=== PATIENT | female | born 1965 | race Caucasian/White ===

== ENCOUNTER 2017-03-15 16:09 | Emergency (ER) | payer BC, MEDICARE ==
[2017-03-15] MEDS ORDERED: HYDROcodone/ACETAMIN 5-325 MG* 1 TAB PO ONE (18:51)
[2017-03-15] MEDS ORDERED: Ondansetron ODT TAB* 4 MG PO ONE (18:52)
--- NOTE | 2017-03-15 19:00 | ED ---
Progress - Progress Note Progress Note: 51 yo F with LUQ abd pain, hx diverticulitis, states it feels like her diverticulits. No fever, no V. States she is very sensitive to pain meds. Agrees to try hydrocodone with a sip, and zofran 4mg ODT. Labs initiated and CT with oral and IV contrast ordered. Pt is marsh, , monogamous, states she is not . Doesn't get regular periods anymore. Is a smoker. No urinary sxs. No cough, no SOB. s/p helga Exam in hallway: pt with her ; alert, mod pain distress. Abd soft, +BS, tender LUQ. min tenderness LLQ, no guarding, no rebound, no masses. Pt ambulatory to bathroom after this greeting. Course/Dx - Diagnoses Provider Diagnoses: Abdominal pain
[2017-03-15 19:25] LABS: Hematocrit 43 % (35-47); Hemoglobin 15.1 g/dl (12.0-16.0); Mean Corpuscular HGB Conc 35 g/dl (31-36); Mean Corpuscular Hemoglobin 31 pg (27-31); Mean Corpuscular Volume 88 fL (80-97); Mean Platelet Volume 9 um3 (7.4-10.4); Red Blood Count 4.83 10^6/ul (4.0-5.4); Red Cell Distribution Width 14 % (10.5-15); White Blood Count 9.4 10^3/ul (3.5-10.8)
[2017-03-15 19:35] LABS: BUN/Creatinine Ratio 9.2 (8-20); EGFR Non-African American 80.9 (>60); Potassium 3.7 mmol/L (3.5-5.0)
[2017-03-15 19:36] LABS: Albumin 4.1 g/dL (3.2-5.2); Calcium 9.1 mg/dL (8.6-10.3); Globulin 2.6 g/dL (2-4); Total Bilirubin 0.3 mg/dL (0.2-1.0); Total Protein 6.7 g/dL (6.4-8.9)
[2017-03-15] MEDS ORDERED: Iohexol 300* (CONTRAST) 10 ML SDV IV ONE (19:54)
--- NOTE | 2017-03-15 20:34 | RAD ---
Indication: Left upper quadrant pain. 2 views of the chest including dual energy PA views demonstrate no mediastinal shift. Heart is of normal size and configuration. Lungs are clear. IMPRESSION: No active cardiopulmonary disease is noted.
[2017-03-15 21:34] LABS: Urine Bacteria 1+ (Absent); Urine Bilirubin Negative (Negative); Urine Glucose Negative (Negative); Urine Nitrite Negative (Negative)
--- NOTE | 2017-03-15 21:34 | RAD ---
Indication: Abdominal pain. Left upper quadrant pain, left lower quadrant pain Contrast: Administered 100.0 ml of OMNIPAQUE 300 mg/ml CT of the abdomen and pelvis was performed after oral and IV contrast demonstration. Coronal and sagittal reconstructed images were obtained. The lung bases demonstrate no pleural fluid, nodules or masses. Heart is of normal size without evidence of pericardial effusion. The liver is normal in size. The dome of the right lobe of liver there is a low density lesion measuring approximately 9 mm. Additional low density lesion inferior tip of the right lobe measures 12 mm. Nonspecific low density is noted medial segment of left lobe. These were all present on previous exam of October 13, 2013 and are likely benign findings. Patient is status post cholecystectomy. No mass or pancreatic ductal dilatation is noted. No adrenal lesions are noted. The kidneys demonstrates symmetric nephrograms without hydronephrosis. There is no evidence of abnormally dilated loops of bowel noted. The colon is filled with stool. Diverticulosis without definite evidence of diverticulitis is noted. No pelvic adenopathy is noted. No retroperitoneal adenopathy is noted. Cystic structure is noted in the enlarged right ovary measuring up to 4.9 x 3.7 x 3.2 cm. This was not present previously. Follow-up exam is suggested. No hernias are noted. Urinary bladder is unremarkable. The remainder of the pelvis is unremarkable with no pelvic adenopathy. IMPRESSION: Right ovarian cyst measuring up to 4.9 cm. No abnormal masses or fluid collections are identified. Low density lesions in the liver are stable and likely represent benign finding such as cysts.
[2017-03-15 22:21] VITALS: BP 103/64
--- NOTE | 2017-03-17 12:35 | ED ---
Luigi Miguel Benjamin, scribed for Konrad Yates MD on 03/15/17 at 2050 . Abdominal Pain/Female - HPI Summary HPI Summary: 51yo female presents to ED with left sided abdominal pain for 2 days now. Pt has hx of diverticulitis and states that her current pain feels like diverticulitis. Pain is aggravated with food and passing bowel relieves her pain. Denies fever, V/D, any urinary symptoms or SOB. Surgical hx of cholecystectomy. - History of Current Complaint Chief Complaint: EDAbdPain Stated Complaint: STOMACH PAIN LT SIDE/GI HISTORY Time Seen by Provider: 03/15/17 18:47 Hx Obtained From: Patient Hx Last Menstrual Period: spotting last a few eeks ago ?: No Onset/Duration: Still Present Timing: Constant Severity Initially: Moderate Severity Currently: Moderate Pain Intensity: 7 Pain Scale Used: 0-10 Numeric Location: Discrete At: LUQ, Discrete At: LLQ Radiates: No Aggravating Factor(s): Food Alleviating Factor(s): Bowel Movement Associated Signs and Symptoms: Negative: Fever, Cough, Constipation, Urinary Symptoms, Nausea, Vomiting, Diarrhea Allergies/Adverse Reactions: Allergies Allergy/AdvReac Type Severity Reaction Status Date / Time Morphine Allergy Unknown Hives Verified 03/15/17 16:16 Adhesive Tape Allergy SKIN Verified 03/15/17 16:16 BREAKS DOWN bleach Allergy Hives Uncoded 03/15/17 16:16 PMH/Surg Hx/FS Hx/Imm Hx Endocrine/Hematology History: Denies: Hx Diabetes, Hx Thyroid Disease Cardiovascular History: Denies: Hx Hypercholesterolemia, Hx Hypertension, Hx Pacemaker/ICD, Hx Peripheral Vascular Disease Respiratory History: Reports: Hx Asthma, Other Respiratory Problems/Disorders - undiagnosed sleep apnea Denies: Hx Chronic Obstructive Pulmonary Disease (COPD) GI History: Reports: Other GI Disorders - Hx GERD, divirticulitis Denies: Hx Ulcer History: Denies: Hx Renal Disease Musculoskeletal History: Reports: Other Musculoskeletal History - Multiple back surgeries Denies: Hx Arthritis, Hx Osteoporosis Sensory History: Reports: Hx Contacts or Glasses, Hx Eye Injury - blurry vision to right eye (childhood injury) Denies: Hx Cataracts, Hx Glaucoma, Hx Hearing Aid Opthamlomology History: Reports: Hx Contacts or Glasses, Hx Eye Injury - blurry vision to right eye (childhood injury) Denies: Hx Cataracts, Hx Glaucoma Neurological History: Reports: Hx Migraine Denies: Hx Headaches, Hx Seizures, Hx Transient Ischemic Attacks (TIA) Psychiatric History: Denies: Hx Anxiety, Hx Depression, Hx Panic Disorder - Cancer History Hx Chemotherapy: No Hx Radiation Therapy: No - Surgical History Surgery Procedure, Year, and Place: L4-L5 FUSION WITH RAY CAGE 1996 ;. L4-L5(? ) BACK SURGERY WITH RODS AND SCREWS 2002;. RT HAND SURGERY 2006;. PARTIAL HYSTERECTOMY ;. CHolecystectomy, 2013 ;. Right Knee Arthroscopy - Meniscus, APR 2014 ;. surgery for "hole" in intestines due to diverticulitis Hx Anesthesia Reactions: Yes - severe nausea/vomiting Infectious Disease History: No Infectious Disease History: Denies: Hx Clostridium Difficile, Hx Hepatitis, Hx Human Immunodeficiency Virus (HIV), Hx of Known/Suspected MRSA, Hx Shingles, Hx Tuberculosis, Hx Known/ Suspected VRE, Hx Known/Suspected VRSA, History Other Infectious Disease, Traveled Outside the [place] in Last 30 Days - Family History Known Family History: Negative: Cardiac Disease, Blood Disorder - Social History Lives: With Family Alcohol Use: None Hx Substance Use: No Substance Use Type: Reports: None Hx Tobacco Use: Yes - 1 Pack a day Smoking Status (MU): Heavy Every Day Tobacco Smoker Type: Cigarettes Amount Used/How Often: 1/2 - 1 PPD Length of Time of Smoking/Using Tobacco: ~ "enough years" Have You Smoked in the Last Year: Yes Review of Systems Negative: Fever, Chills Eyes: Negative ENT: Negative Cardiovascular: Negative Negative: Shortness Of Breath Positive: Abdominal Pain - left sided abdominal pain. Negative: Vomiting, Diarrhea, Nausea Genitourinary: Negative Positive: no symptoms reported Musculoskeletal: Negative Skin: Negative Neurological: Negative Psychological: Normal All Other Systems Reviewed And Are Negative: Yes Physical Exam Triage Information Reviewed: Yes Vital Signs On Initial Exam: Initial Vitals Temp Pulse Resp BP Pulse Ox 97.6 F 80 16 118/70 100 03/15/17 16:29 03/15/17 16:29 03/15/17 16:29 03/15/17 16:29 03/15/17 16:29 Vital Signs Reviewed: Yes Appearance: Positive: Well-Appearing, Well-Nourished, Pain Distress - mild Skin: Positive: Warm, Skin Color Reflects Adequate Perfusion, Dry Head/Face: Positive: Normal Head/Face Inspection Eyes: Positive: Normal ENT: Positive: Normal ENT inspection, Hearing grossly normal Neck: Positive: Supple, Nontender Respiratory/Lung Sounds: Positive: Clear to Auscultation, Breath Sounds Present Cardiovascular: Positive: RRR, Pulses are Symmetrical in both Upper and Lower Extremities Abdomen Description: Positive: Soft. Negative: Nontender - LUQ Bowel Sounds: Positive: Present Musculoskeletal: Positive: Strength/ROM Intact Neurological: Positive: Sensory/Motor Intact, Alert, Oriented to Person Place, Time Psychiatric: Positive: Affect/Mood Appropriate - [place] Coma Scale Coma Scale Total: 15 Diagnostics - Vital Signs Vital Signs Temp Pulse Resp BP Pulse Ox 03/15/17 16:29 97.6 F 80 16 118/70 100 - Laboratory Lab Results: Lab Results 03/15/17 03/15/17 03/15/17 Range/Units 19:10 19:10 19:10 WBC 9.4 (3.5-10.8) 10^3/ul RBC 4.83 (4.0-5.4) 10^6/ul Hgb 15.1 (12.0-16.0) g/dl Hct 43 (35-47) % MCV 88 (80-97) fL MCH 31 (27-31) pg MCHC 35 (31-36) g/dl RDW 14 (10.5-15) % Plt Count 218 (150-450) 10^3/ul MPV 9 (7.4-10.4) um3 Neut % (Auto) 59.4 (38-83) % Lymph % (Auto) 32.3 (25-47) % Starr % (Auto) 6.0 (1-9) % Eos % (Auto) 1.6 (0-6) % Baso % (Auto) 0.7 (0-2) % Absolute Neuts (auto) 5.6 (1.5-7.7) 10^3/ul Absolute Lymphs (auto) 3.0 (1.0-4.8) 10^3/ul Absolute Monos (auto) 0.6 (0-0.8) 10^3/ul Absolute Eos (auto) 0.1 (0-0.6) 10^3/ul Absolute Basos (auto) 0.1 (0-0.2) 10^3/ul Absolute Nucleated RBC 0 10^3/ul Nucleated RBC % 0 Sodium 137 (133-145) mmol/L Potassium 3.7 (3.5-5.0) mmol/L Chloride 105 (101-111) mmol/L Carbon Dioxide 28 (22-32) mmol/L Anion Gap 4 (2-11) mmol/L BUN 7 (6-24) mg/dL Creatinine 0.76 (0.51-0.95) mg/dL Est GFR ( Amer) 104.0 (>60) Est GFR (Non-Af Amer) 80.9 (>60) BUN/Creatinine Ratio 9.2 (8-20) Glucose 77 (70-100) mg/dL Lactic Acid 0.7 (0.5-2.0) mmol/L Calcium 9.1 (8.6-10.3) mg/dL Magnesium 2.0 (1.9-2.7) mg/dL Total Bilirubin 0.30 (0.2-1.0) mg/dL AST 15 (13-39) U/L ALT 19 (7-52) U/L Alkaline Phosphatase 64 (34-104) U/L C-Reactive Protein 2.00 (< 5.00) mg/L Total Protein 6.7 (6.4-8.9) g/dL Albumin 4.1 (3.2-5.2) g/dL Globulin 2.6 (2-4) g/dL Albumin/Globulin Ratio 1.6 (1-3) Amylase 46 (29-103) U/L Lipase 10 L (11.0-82.0) U/L Result Diagrams: 03/15/17 19:10 03/15/17 19:10 Lab Statement: Any lab studies that have been ordered have been reviewed, and results considered in the medical decision making process. - Radiology CXR Xray Interpretation: No Acute Changes Radiology Interpretation Completed By: Radiologist - ED physician has reviewed this radiology report and agrees. - CT CT A/P W CT Interpretation: Positive (See Comments) - IMPRESSION: Right ovarian cyst measuring up to 4.9 cm. No abnormal masses or fluid collections are identified. Low density lesions in the liver are stable and likely represent benign finding such as cysts. CT Interpretation Completed By: Radiologist - ED physician has reviewed this radiology report and agrees. Re-Evaluation - Re-Evaluation First Eval Re-Evaluation Time: 21:43 Comment: Reviewed lab and imaging result with the pt. Abdominal Pain Fem Course/Dx - Course Course Of Treatment: Ms. Lincoln presented with a concern that she was developing diverticulitis again. She had pain and no real tenderness in the LLQ. Labs and CT were OK. Her U/A is equivocal and sent for C&S. - Diagnoses Provider Diagnoses: Abdominal pain Discharge - Discharge Plan Condition: Stable Disposition: HOME Patient Education Materials: Abdominal Pain (ED) Referrals: Valentina Ace NP [Primary Care Provider] - 2 Days The documentation as recorded by the Luigi hamm Benjamin accurately reflects the service I personally performed and the decisions made by me, Konrad Yates MD.
--- NOTE | 2017-03-17 15:03 | PN ---
Progress Note - Progress Note Date of Service: 03/17/17 Note: Patient urine grew E coli 10-25,000. will not treat as not significant amount cultured.
== END 2017-03-15 22:00 | disposition home or self-care (01) ==
LOC: ED 16:09
DX: R10.32 Left lower quadrant pain (principal); R10.12 Left upper quadrant pain; K21.9 Gastro-esophageal reflux disease without esophagitis; K57.92 Diverticulitis of intestine, part unspecified, without perforation or abscess without bleeding; G43.909 Migraine, unspecified, not intractable, without status migrainosus; Z90.711 Acquired absence of uterus with remaining cervical stump; Z91.048 Other nonmedicinal substance allergy status; Z88.5 Allergy status to narcotic agent; Z90.49 Acquired absence of other specified parts of digestive tract; F17.210 Nicotine dependence, cigarettes, uncomplicated
CPT/HCPCS: 36415; 71020; 74177; 80053; 81003; 81015; 82150; 83605; 83690; 83735; 85025; 86140; 87077; 87086; 87186; 99282; A9270-GY; Q9967

== ENCOUNTER 2018-01-15 19:17 | Emergency (ER) | payer MEDICARE ==
[2018-01-15 19:48] VITALS: BP 108/61
[2018-01-15] MEDS ORDERED: Amoxicillin/Clavulanate TAB* 875 MG PO ONE (20:16)
--- NOTE | 2018-01-15 20:16 | UC ---
Throat Pain/Nasal Manolo HPI - HPI Summary HPI Summary: headaches for about 1 week, now sinus pressure, feeling a bit dizzy today when she moves fast - History of Current Complaint Chief Complaint: UCGeneralIllness Stated Complaint: SINUS PAIN,SORE THROAT Time Seen by Provider: 01/15/18 19:42 Hx Obtained From: Patient Hx Last Menstrual Period: no uterus Onset/Duration: Gradual Onset Severity: Moderate Pain Intensity: 5 Cough: Nonproductive Associated Signs & Symptoms: Positive: Negative - Allergies/Home Medications Allergies/Adverse Reactions: Allergies Allergy/AdvReac Type Severity Reaction Status Date / Time Adhesive Tape Allergy SKIN Verified 11/19/17 14:27 BREAKS DOWN morphine Allergy Hives Verified 11/19/17 14:27 bleach Allergy Hives Uncoded 11/19/17 14:27 Home Medications: Home Medications diPHENhydraMINE PO* [Benadryl PO 25 MG TAB*] 25 mg PO Q6H PRN 01/15/18 [History Confirmed 01/15/18] PMH/Surg Hx/FS Hx/Imm Hx Previously Healthy: Yes - Surgical History Surgical History: Yes Surgery Procedure, Year, and Place: L4-L5 FUSION WITH RAY CAGE 1996 ;. L4-L5(? ) BACK SURGERY WITH RODS AND SCREWS 2002;. RT HAND SURGERY 2006;. PARTIAL HYSTERECTOMY ;. CHolecystectomy, 2013 ;. Right Knee Arthroscopy - Meniscus, APR 2014 - Family History Known Family History: Positive: None Negative: Cardiac Disease, Blood Disorder - Social History Occupation: Disabled Lives: With Family Alcohol Use: Occasionally Substance Use Type: None Smoking Status (MU): Heavy Every Day Tobacco Smoker Type: Cigarettes Amount Used/How Often: 1/2 - 1 PPD Length of Time of Smoking/Using Tobacco: ~ "enough years" Have You Smoked in the Last Year: Yes Household Exposure Type: Cigarettes Cessation Counseling: Counseled 3+Min - 10 Min - Immunization History Most Recent Influenza Vaccination: 2011 Most Recent Tetanus Shot: Unknown (but done in the last 10 years) probably 4 years ago Most Recent Pneumonia Vaccination: Has not had Review of Systems Constitutional: Fatigue Skin: Negative Eyes: Negative ENT: Sinus Pain/Tenderness Respiratory: Cough - if lies supine Cardiovascular: Negative Neurological: Headache Psychological: Negative All Other Systems Reviewed And Are Negative: Yes Physical Exam Triage Information Reviewed: Yes Appearance: Well-Appearing, No Pain Distress, Well-Nourished Vital Signs: Initial Vital Signs Temp 97.3 F 01/15/18 19:43 Pulse 75 01/15/18 19:43 Resp 16 01/15/18 19:43 BP 108/61 01/15/18 19:43 Pulse Ox 99 01/15/18 19:43 Vital Signs Reviewed: Yes Eyes: Positive: Conjunctiva Clear ENT: Positive: Sinus tenderness, Other - post nasal drip Neck exam: Normal Neck: Positive: No Lymphadenopathy Respiratory Exam: Normal Respiratory: Positive: Lungs clear Cardiovascular Exam: Normal Neurological Exam: Normal Neurological: Positive: Alert Psychological Exam: Normal Skin Exam: Normal Throat Pain/Nasal Course/Dx - Differential Dx/Diagnosis Differential Diagnosis/HQI/PQRI: Pharyngitis, Sinusitis, URI Provider Diagnoses: sinusitis Discharge - Sign-Out/Discharge Documenting (check all that apply): Patient Departure - Discharge Plan Condition: Stable Disposition: HOME Prescriptions: Amoxicillin/Clavulanate TAB* [Augmentin TAB 875*] 875 mg PO BID #19 tab Fluconazole 150 MG (NF) [Diflucan 150 mg (NF)] 150 mg PO ONCE #2 tab Patient Education Materials: Sinusitis (ED) Referrals: Valentina Ace NP [Primary Care Provider] - 3 Days (if no better) Additional Instructions: drink plenty of fluids start antibiotic and take as prescribed - Billing Disposition and Condition Condition: STABLE Disposition: Home
== END 2018-01-15 20:20 | disposition home or self-care (01) ==
LOC: UCEAST 19:17
DX: J32.9 Chronic sinusitis, unspecified (principal); F17.210 Nicotine dependence, cigarettes, uncomplicated
CPT/HCPCS: 99212; A9270-GY; G0463

== ENCOUNTER → 2018-11-15 16:34 | Emergency (ER) | payer MEDICARE ==
--- OUTSIDE RECORDS SUMMARY | 2018-11-15 17:24 | XMS REPORT | Continuity of Care Document ---
:1965 External Reference #:[id number] Author Name Dorys Currie Care Team Providers Name Role Phone Zandra Simmons MD Primary Care Physician Unavailable Payers Date Identification Numbers Payment Provider Subscriber Effective: 2016 Policy Number: [id number] Medicare Blue Ppo Denise [employer] Group Number: [id number] [address] [address] PayID: [id number] [place] [id number] Expires: 2016 Policy Number: [id number] Medicare Denise Law PayID: [id number] [address] [place] [address] Problems Active Problems Provider Date Asthma Valentina Ace, N.P. Onset: 11/14/2013 Migraine with aura Valentina Ace, N.P. Onset: 11/14/2013 Disturbance in sleep behavior Meeta Vail MD Onset: 12/05/2015 Allergic rhinitis Meeta Vail MD Onset: 12/05/2015 Uncomplicated moderate persistent asthma Meeta Vail MD Onset: 12/05/2015 Localized, primary osteoarthritis Beverley Bishop M.D. 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 ETOH Use Denies alcohol use Tobacco Use Start: Unknown Patient is a current smoker, smokes every day Recreational Drug Use Denies Drug Use Smoking Status Reviewed: 10/17/18 Patient is a current smoker, smokes every day Exercise Type/Frequency Does not exercise Allergies, Adverse Reactions, Alerts Active Allergies Reaction Severity Comments Date Morphine Nausea and Vomiting Severe 11/14/2013 Bleach 05/17/2014 Adhesive 09/19/2018 Medications Active Medications SIG Qnty Indications Ordering Provider Date Meloxicam 1 by mouth 14tabs M25.562 Beverley Bishop M.D. 09/19/2018 15mg Tablets every day Symbicort 2 puff twice a 20.4gm J45.40 Meeta Vail MD 12/05/2015 80-4.5mcg/Act day Aerosol Ibuprofen Unknown History Medications Motrin Q6H 40tabs Unknown 11/19/2017 - Repack 09/18/2018 600mg Tablets Diflucan Once 4tabs Unknown 11/19/2017 - 150mg 09/18/2018 Tablets Nystatin 5cc swish and spit 180ml K12.32 Meeta Vail 10/12/2016 - 2 times a day 01/17/2017 [id number] Suspension Levaquin 1 by mouth every 7tabs Meeta Vail, 06/22/2016 - 500mg day 10/11/2016 Tablets Zithromax Z-Kyle 2 tabs day#1, 1 5tabs J45.998 Meeta Vail 06/14/2016 - tab daily for 4 10/11/2016 250mg Tablets days Prednisone Take as directed, 21units Meeta Vail, 06/14/2016 - 5mg (21) 6 tabs day#1, 5 10/11/2016 TBPK tabs day#2, 4 tabs day#3,3 tabs day#4,2 tabs day#5,1 tab day#6 Fluconazole 1 tablet daily for 14tabs Meeta Vail, 06/14/2016 - 100mg 3 days 10/11/2016 Tablets Zolpidem Tartrate 1 tablet at night 30tabs Meeta Vail 12/06/2015 - as needed for 10/11/2016 5mg Tablets sleep Eszopiclone 1 tab at night as 7tabs G47.9 Meeta Genna, 12/05/2015 - 2mg needed for sleep 10/11/2016 Tablets Zolpidem Tartrate 1 tablet by mouth 30tabs Meeta Vail, 12/05/2015 - ER as needed for MD 01/20/2016 6.25mg Tablets sleep ER Ibuprofen take one tablet by 90tabs M25.561 Alia 11/15/2015 - 800mg mouth three times CRISS Mayberry 09/18/2018 Tablets a day as needed Cephalexin 1 by mouth three 21caps L02.32 Valentina Db, 11/07/2015 - 500mg times a day for 7 N.P. 11/14/2015 Capsules days Mupirocin apply to affected 44gm L02.32 Valentina Db, 11/07/2015 - 2% areas three times N.P. 01/17/2017 Ointment a day until clear Voltaren apply 4 gms to 500gm M25.561 Valentina Db, 11/07/2015 - 1% Gel affected area four N.P. 10/11/2016 times daily not to exceed 16 gms daily Azithromycin two tabs day one, 6tabs J20.9 Valentina Db, 09/20/2015 - 250mg one daily till N.P. 09/30/2015 Tablets gone Prednisone 4 tablets by mouth 43tabs J20.9 Valentina Db, 09/20/2015 - 10mg for 4 days 3 N.P. 10/06/2015 Tablets tablets by mouth for 4 days 2 tablets by mouth for 4 days 1 tablet by mouth for 4 days Fluconazole one po 3 days for 5tabs J20.9 Valentina Db, 09/20/2015 - 150mg 5 doses N.P. 11/07/2015 Tablets Advair Diskus 1 puff by mouth 60units Valentina Ace, 04/07/2015 - twice a day N.P. 02/05/2016 250-50mcg/Dose Aerosol Fluconazole 2 tablets po day 1 30tabs 112.0 Valentina Ace, 05/28/2014 - 100mg then 1 tablet po N.P. 06/11/2014 Tablets until symptoms clear Asmanex Twisthaler inhale 2 puffs by 1units 493.90 Valentina Montalvomaru, 2013 - 120 Metered Doses mouth two times N.P. 09/20/2015 daily 220mcg/Inh Aerosol Ventolin HFA 1 to 2 inhalations 1inhaler 493.90 Valentina Ace, 11/14/2013 - every 4 hours as N.P. 01/17/2017 108(90Base) mcg/Act needed Aerosol Imitrex one tablet as 12tabs 346.90 Valentina Montalvomaru, 11/14/2013 - 50mg needed for N.P. 01/17/2017 Tablets headache Fluconazole 2 po day one then 16tabs 112.0 Valentina Montalvomaru, 11/14/2013 - 100mg 1 po daily for 14 N.P. 05/15/2014 Tablets days Advair Diskus 1 puff by mouth 14units Valentina Ace, - twice a day N.P. 05/16/2014 250-50mcg/Dose Aerosol Omeprazole 1 by mouth every 30caps Unknown - 20mg day 09/18/[address] Fluticasone 2 sprays each 16gm Valentina Ace, - Propionate nostril daily as N.P. 09/20/2015 needed 50mcg/Act Suspension Proair HFA 2 puffs by mouth 1units Unknown - every 4 hours as 11/14/2013 108(90Base) mcg/Act needed Aerosol Flagyl 1 by mouth twice a 28tabs Unknown - 500mg day 05/21/2014 Tablets Penicillin V four times a day 40tabs Unknown - Potassium for 10 days 09/20/2015 500mg Tablets Medications Administered in Office Medication SIG Qnty Indications Ordering Provider Date Synvisc Or Synvisc-One Beverley Bishop M.D. 10/10/2018 Injection 1 MG Injection Depomedrol 40MG Beverley Bishop M.D. 09/19/2018 Injection Synvisc Or Synvisc-One Beverley Bishop M.D. 02/17/2017 Injection 1 MG Injection Synvisc Or Synvisc-One Beverley Bishop M.D. 02/10/2017 Injection 1 MG Injection Synvisc Or Synvisc-One Beverley Bishop M.D. 02/03/2017 Injection 1 MG Injection Synvisc Or Synvisc-One Beverley Bishop M.D. 12/23/2015 Injection 1 MG Injection Synvisc Or Synvisc-One Beverley Bishop M.D. 12/13/2015 Injection 1 MG Injection Synvisc Or Synvisc-One Beverley Bishop M.D. 12/06/2015 Injection 1 MG Injection Inj, Regadenoson, 0.1 MG Bryant Cabezas M.D., 05/22/2014 Injection FACC, FASNC Inj, Regadenoson, 0.1 MG Viki Crane M.D. 05/22/2014 Injection Technetium TC 99M Bryant Cabezas M.D., 05/22/2014 Tetrofosmin, Per Unit Dose FACC, FASNC Up To 40 Millicuries Injection Technetium TC 99M Viki Crane M.D. 05/22/2014 Tetrofosmin, Per Unit Dose Up To 40 Millicuries Injection Vital Signs Date Vital Result Comment 10/17/2018 3:20pm Height 65 inches 5'5" Weight 190.00 lb Heart Rate 95 /min Body Temperature 96.8 F O2 % BldC Oximetry 97 % BMI (Body Mass Index) 31.6 kg/m2 10/10/2018 1:37pm Height 65 inches 5'5" Weight 192.00 lb BP Systolic 116 mmHg BP Diastolic 74 mmHg Body Temperature 97.8 F BMI (Body Mass Index) 31.9 kg/m2 09/30/2018 11:31am Height 65 inches 5'5" Weight 190.00 lb patient stated Heart Rate 84 /min BP Systolic 108 mmHg BP Diastolic 82 mmHg Respiratory Rate 12 /min Body Temperature 97.4 F BMI (Body Mass Index) 31.6 kg/m2 09/19/2018 2:23pm Height 65 inches 5'5" Weight 192.00 lb Heart Rate 56 /min BP Systolic 140 mmHg BP Diastolic 88 mmHg Respiratory Rate 16 /min Body Temperature 97.4 F Pain Level 8 BMI (Body Mass Index) 31.9 kg/m2 02/17/2017 8:40am Height 65 inches 5'5" Weight 180.00 lb Heart Rate 80 /min BP Systolic 113 mmHg BP Diastolic 84 mmHg Body Temperature 95.9 F BMI (Body Mass Index) 30.0 kg/m2 02/10/2017 9:55am Height 65 inches 5'5" Weight 180.00 lb BP Systolic 118 mmHg BP Diastolic 74 mmHg Respiratory Rate 20 /min Pain Level 7 BMI (Body Mass Index) 30.0 kg/m2 02/03/2017 8:37am Height 65 inches 5'5" Weight 180.00 lb BP Systolic 112 mmHg BP Diastolic 72 mmHg Respiratory Rate 20 /min Pain Level 5 BMI (Body Mass Index) 30.0 kg/m2 01/18/2017 9:11am Heart Rate 78 /min BP Systolic Sitting 110 mmHg BP Diastolic Sitting 85 mmHg Body Temperature 96.0 F Pain Level 4 01/06/2017 10:58am Height 65 inches 5'5" Weight 180.00 lb Respiratory Rate 16 /min Pain Level 5 BMI (Body Mass Index) 30.0 kg/m2 10/12/2016 1:00pm Height 65 inches 5'5" Weight 180.00 lb Heart Rate 87 /min BP Systolic Sitting 110 mmHg BP Diastolic Sitting 64 mmHg Respiratory Rate 16 /min O2 % BldC Oximetry 98 % BMI (Body Mass Index) 30.0 kg/m2 10/12/2016 12:58pm Height 65 inches 5'5" 04/13/2016 12:32pm Height 65 inches 5'5" Weight 196.00 lb Heart Rate 85 /min BP Systolic Sitting 124 mmHg BP Diastolic Sitting 70 mmHg Respiratory Rate 16 /min O2 % BldC Oximetry 98 % BMI (Body Mass Index) 32.6 kg/m2 02/05/2016 11:34am Height 65 inches 5'5" Weight 193.00 lb Heart Rate 95 /min BP Systolic Sitting 120 mmHg BP Diastolic Sitting 72 mmHg Respiratory Rate 14 /min O2 % BldC Oximetry 97 % BMI (Body Mass Index) 32.1 kg/m2 01/07/2016 11:48am Height 65 inches 5'5" Weight 193.00 lb Heart Rate 92 /min BP Systolic 118 mmHg BP Diastolic 74 mmHg Respiratory Rate 14 /min O2 % BldC Oximetry 97 % BMI (Body Mass Index) 32.1 kg/m2 12/23/2015 1:21pm Height 65 inches 5'5" Weight 193.00 lb Pain Level 3 BMI (Body Mass Index) 32.1 kg/m2 12/13/2015 10:27am Height 65 inches 5'5" Weight 193.00 lb Pain Level 5 BMI (Body Mass Index) 32.1 kg/m2 12/06/2015 1:50pm Height 65 inches 5'5" Weight 193.00 lb Heart Rate 100 /min BP Systolic 113 mmHg BP Diastolic 76 mmHg BMI (Body Mass Index) 32.1 kg/m2 12/05/2015 11:06am Height 65 inches 5'5" Weight 193.38 lb Heart Rate 104 /min BP Systolic 102 mmHg BP Diastolic 72 mmHg Respiratory Rate 14 /min O2 % BldC Oximetry 98 % BMI (Body Mass Index) 32.2 kg/m2 Neck Circumference in inches 15 11/15/2015 2:49pm Height 65 inches 5'5" Weight 185.00 lb Body Temperature 98.7 F Pain Level 7 BMI (Body Mass Index) 30.8 kg/m2 11/07/2015 10:26am Weight 193.00 lb with shoes Heart Rate 105 /min BP Systolic Sitting 100 mmHg BP Diastolic Sitting 70 mmHg Body Temperature 95.9 F O2 % BldC Oximetry 98 % 09/20/2015 1:15pm Weight 186.25 lb Heart Rate 96 /min BP Systolic Sitting 116 mmHg BP Diastolic Sitting 70 mmHg Respiratory Rate 14 /min Body Temperature 96.2 F O2 % BldC Oximetry 96 % 05/28/2014 10:10am Height 65 inches 5'5" Weight 172.50 lb Heart Rate 88 /min BP Systolic Sitting 118 mmHg BP Diastolic Sitting 70 mmHg Body Temperature 98.6 F O2 % BldC Oximetry 97 % BMI (Body Mass Index) 28.7 kg/m2 05/16/2014 8:50am Height 65 inches 5'5" Weight 172.50 lb Heart Rate 113 /min BP Systolic Sitting 120 mmHg BP Diastolic Sitting 60 mmHg Body Temperature 98.2 F O2 % BldC Oximetry 95 % BMI (Body Mass Index) 28.7 kg/m2 11/14/2013 8:41am Height 65 inches 5'5" Weight 180.00 lb Heart Rate 78 /min BP Systolic Sitting 108 mmHg BP Diastolic Sitting 70 mmHg Body Temperature 97.1 F BMI (Body Mass Index) 30.0 kg/m2 Results Test Date Facility Test Result H/L Range Note Urinalysis Profile 03/15/2017 [facility] Urine Color Straw N [address] [place] [address] [phone] Urine Appearance Clear N Urine Specific Stow 1.003 Low 1.010-1.030 Urine pH 6.0 N 5-9 Urine Urobilinogen Negative N Negative Urine Ketones Negative N Negative Urine Protein Negative N Negative Urine Leukocytes Trace Abnormal Negative Urine Blood Negative N Negative Urine Nitrite Negative N Negative Urine Bilirubin Negative N Negative Urine Glucose Negative N Negative Urine White Blood Cell Trace(0-5/hpf) N Absent Urine Red Blood Cell Trace(0-2/hpf) N Absent Urine Bacteria 1+ Abnormal Absent Urine Squamous Epithelial Cell Present Abnormal Absent Urine Culture And 03/15/2017 [facility] Urine Culture SEE RESULT [address] [place] [address] [phone] Laboratory test 03/15/2017 [facility] Lactic Acid 0.7 mmol/L N 0.5-2. [address] [place] [address] [phone] CBC Auto Diff 03/15/2017 [facility] White Blood 9.4 10^3/uL N 3.5-[address] Count .8 [place] [address] [phone] Red Blood Count 4.83 10^6/uL N 4.0-5.4 Hemoglobin 15.1 g/dL N 12.0-16.0 Hematocrit 43 % N 35-47 Mean Corpuscular Volume 88 fL N 80-97 Mean Corpuscular Hemoglobin 31 pg N 27-31 Mean Corpuscular HGB Conc 35 g/dL N 31-36 Red Cell Distribution Width 14 % N 10.5-15 Platelet Count 218 10^3/uL N 150-450 Mean Platelet Volume 9 um3 N 7.4-10.4 Abs Neutrophils 5.6 10^3/uL N 1.5-7.7 Abs Lymphocytes 3.0 10^3/uL N 1.0-4.8 Abs Monocytes 0.6 10^3/uL N 0-0.8 Abs Eosinophils 0.1 10^3/uL N 0-0.6 Abs Basophils 0.1 10^3/uL N 0-0.2 Abs Nucleated RBC 0 10^3/uL N Granulocyte % 59.4 % N 38-83 Lymphocyte % 32.3 % N 25-47 Monocyte % 6.0 % N 1-9 Eosinophil % 1.6 % N 0-6 Basophil % 0.7 % N 0-2 Nucleated Red Blood Cells % 0 N Comp Metabolic Panel 03/15/2017 [facility] Sodium 137 mmol/L N 133-145 [address] [place] [address] [phone] Potassium 3.7 mmol/L N 3.5-5.0 Chloride 105 mmol/L N 101-111 Co2 Carbon Dioxide 28 mmol/L N 22-32 Anion Gap 4 mmol/L N 2-11 Glucose 77 mg/dL N 70-100 Blood Urea Nitrogen 7 mg/dL N 6-24 Creatinine 0.76 mg/dL N 0.51-0.95 BUN/Creatinine Ratio 9.2 N 8-20 Calcium 9.1 mg/dL N 8.6-10.3 Total Protein 6.7 g/dL N 6.4-8.9 Albumin 4.1 g/dL N 3.2-5.2 Globulin 2.6 g/dL N 2-4 Albumin/Globulin Ratio 1.6 N 1-3 Total Bilirubin 0.30 mg/dL N 0.2-1.0 Alkaline Phosphatase 64 U/L N 34-104 Alt 19 U/L N 7-52 Ast 15 U/L N 13-39 Egfr Non- 80.9 N >60 Egfr 104.0 N >60 3 Laboratory test 03/15/2017 [facility] Magnesium 2.0 mg/dL N 1.9-2.7 finding [address] [place] [address] [phone] Amylase 46 U/L N 29-103 Lipase 10 U/L Low 11.0-82.0 C Reactive Protein 2.00 mg/L N < 5.00 4 Laboratory test 01/24/2015 [facility] Point of Care 88 mg/dL N 74-106 5 finding 101 [facility] [place] [address] [phone] Urinalysis Profile 05/16/2014 [facility] Urine Color Farida N [address] [place] [address] [phone] Urine Appearance Cloudy N Urine Specific Stow 1.025 N 1.010-1.030 Urine pH 5.0 N 5-9 Urine Urobilinogen Negative N Negative Urine Ketones Negative N Negative Urine Protein Negative N Negative Urine Leukocytes 1+ Abnormal Negative Urine Blood Negative N Negative Urine Nitrite Negative N Negative Urine Bilirubin Negative N Negative Urine Glucose Negative N Negative Urine White Blood Cell Trace N Absent Urine Red Blood Cell Trace N Absent Urine Bacteria Absent N Absent Urine Squamous Epithelial Cell Present Abnormal Absent Urine Culture And 05/16/2014 [facility] Urine Culture (SEE NOTE ) [address] [place] [address] [phone] Ua Routine 05/16/2014 [facility] Ua Specific 1.025 Stow Ua PH 5.0 Ua Color medium yellow Ua Appera clear Ua WBC trace Ua Protein trace Ua Glucose neg Ua Ketones 40+ Ua Bilirubin neg Ua Urobilinogen 0.2 Ua Nitrite neg Ua Occult Blood neg GC/Chlamydia 05/12/2014 [facility] Chlamydia Negative N Negative Amplified Rna [address] [address] [phone] Neisseria gonorrhoeae (GC) Rna Negative N Negative 7 Laboratory test 05/12/2014 [facility] Trichomonas Negative N Negative [address] [place] [address] [phone] Gardnerella/Yea 05/12/2014 [facility] Gardnerella/Yea (SEE NOTE ) 9 st: Vaginal Dna [address]: [place] [address] [phone] Surgical 01/05/2014 [facility] S RUN DATE: [address] 01/08/ <[place] [address] NOTE> [phone] Ua Routine 11/14/2013 [employer] Ua Specific 1.015 Stow Ua PH 5 Ua Color yellow Ua Appera clear Ua WBC negative Ua Protein trace Ua Glucose negative Ua Ketones small Ua Bilirubin large Ua Urobilinogen normal Ua Nitrite negative Ua Occult Blood negative 1 SEE RESULT BELOW Name: DENISE LAW : [address]: Konrad Yates MD Acct: [id number] Unit: [id number] AGE: 51 Location: ED Re03/15/17 SEX: F Status: DEP ER SPEC: [id number] ISAIAS: 03/15/[address]: Anastasiia Sosa MD REQ: [id number] RECD: 03/15/17 STATUS: HUE CHURCHILL DR: Valentina Yates MD _ SOURCE: URINE SPDESC: ORDERED: Urine Culture Procedure Result Reported Site Urine Culture Final 03/17/17- 0959 ML Organism 1 ESCHERICHIA COLI Zebulon Count 10-25,000 (Moderate) CFU/ML 1. ESCHERICHIA COLI M.I.C. RX --------- ------ Ampicillin >=32 R Cefazolin <=4 S Cefepime <=1 S Ceftriaxone <=1 S Ciprofloxacin <=0.25 S Gentamicin <=1 S Levofloxacin <=0.12 S Meropenem <=0.25 S Nitrofurantoin <=16 S Tetracycline <=1 S Pipercillin/Tazobactam <=4 S Trimethoprim/Sulfamethoxazole <=20 S Amoxicillin/Clavulanic Acid 16 I Aztreonam <=1 S Contact the Microbiology Department for any additional antibiotic reporting. * ML - MAIN LAB ([facility]) . END OF REPORT * ML=Testing performed at Main Lab DEPARTMENT OF PATHOLOGY, [facility] [place], [place] [address] Rodolfo Headley M.D. Director [facility] # [id number] 2 [facility] Severe Sepsis and Septic Shock Management Bundle Measure requires all lactic acids initially measuring >2.0 mmol/L be repeated. 3 Because ethnic data is not always readily available, this report includes an eGFR for both -Americans and non- Americans. The National Kidney Disease Education Program (NKDEP) does not endorse the use of the MDRD equation for patients that are not between the ages of 18 and 70, are , have extremes of body size, muscle mass, or nutritional status, or are non- or non-. According to the National Kidney Foundation, irrespective of diagnosis, the stage of the disease is based on the level of kidney function: Stage Description GFR(mL/min/1.73 m(2)) 1 Kidney damage with normal or decreased GFR 90 2 Kidney damage with mild decrease in GFR 60-89 3 Moderate decrease in GFR 30-59 4 Severe decrease in GFR 15-29 5 Kidney failure <15 (or dialysis) 4 Acute inflammation: >10.00 5 Activity Aide: [id number] NEGRO ESTRADA 6 RUN DATE: 05/18/14 [facility] LIVE PAGE 1 RUN TIME: 1045 [facility] [place], [place] [address] Specimen Inquiry Name: DENISE LAW : [address]: Valentina Ace NP Acct: [id number] Unit: [id number] AGE: 48 Location: [facility] Re05/16/14 SEX: F Status: REG REF SPEC: [id number] ISAIAS: 05/16/[address]: Valentina Ace NP REQ: [id number] RECD: 05/16/14 STATUS: COMP _ SOURCE: URINE SPDESC: ORDERED: Urine Culture QUERIES: Medent Number [id number] Procedure Result Verified Site Urine Culture Final 05/18/14- 1044 ML No Growth Day 2 (<1,000 CFU/mL) END OF REPORT * ML=Testing performed at Main Lab DEPARTMENT OF PATHOLOGY, [facility] [place] [address] Rodolfo Headley M.D. Director [facility] # [id number] 7 Female urine specimens have been self-validated by [facility] and have been granted conditional assay approval by [facility]. 8 Endocervical Endocervical 9 RUN DATE: 05/14/14 [facility] LIVE PAGE 1 RUN TIME: 1220 [facility] [place], [place] [address] Specimen Inquiry Name: DENISE LAW : [address]: Keyshawn Thornton MD Acct: [id number] Unit: [id number] AGE: 48 Location: [facility] Re05/12/14 SEX: F Status: DEP ER SPEC: [id number] ISAIAS: 05/12/14-1505 [facility] DR: Mayela POTTER REQ: [id number] RECD: 05/13/141 STATUS: HUE CHURCHILL DR: Keyshawn Ace FIRE SYSTEMS INSPECTOR _ SOURCE: VAGINAL SPDESC: ORDERED: Johann,Yeast DNA Procedure Result Verified Site Gardnerella/Yeast: Vaginal DNA Final 05/14/14- 1220 ML Organism 1 Negative Gardnerella Organism 2 Negative Liseth The presence of G. vaginalis, although suggestive, is not diagnostic for bacterial vaginosis. Results should be interpreted in conjuction with other clinical and laboratory data available. Women with vaginal discharge should be evaluated for risk factors of cervicitis and pelvic inflammatory disease, toxic shock syndrome (S.aureus), and if present, evaluated for organisms not included in this assay such as N. gonorrhoeae, C. trachomatis, Mobiluncus, Mycoplasma and/or Prevotella. Mixed infections may occur. The performance of this test on patient specimens collected during or immediately after antimicrobial therapy is unknown. The presence or absence of Liseth species, or G. vaginalis cannot be used as a test for therapeutic success or failure. END OF REPORT * ML=Testing performed at Main Lab DEPARTMENT OF PATHOLOGY, [facility] [place], [place] [address] Rodolfo Headley M.D. Director [facility] # [id number] 10 RUN DATE: 01/08/14 [facility] LIVE PAGE 1 RUN TIME: 7545 [facility] [place], [place] [address] Specimen Inquiry Name: DENISE LAW : [address]: Patrick Whittaker MD Acct: [id number] Unit: [id number] AGE: 48 Location: ENDO Re01/05/14 SEX: F Status: REG REF SPEC: [id number] ISAIAS: 01/05/14-1042 [facility] DR: Patrick Whittaker MD REQ: [id number] RECD: 01/05/144111 STATUS: LINDA CHURCHILL DR: Valentina Ace FIRE SYSTEMS INSPECTOR _ ORDERED: LEVEL IV FINAL DIAGNOSIS Colon, rectum, biopsy: Hyperplastic polyp. CLINICAL HISTORY Screening colonoscopy with diverticulitis POST-OPERATIVE DIAGNOSIS Screening colonoscopy to terminal ileum - rectal polyp biopsied; mild tics GROSS DESCRIPTION The specimen is received in formalin labeled Denise Law, Biopsy Rectal Polyp, and consists of a 0.4 x 0.3 x 0.2 cm. gao-pink, irregular soft tissue fragment. Submitted entirely, one cassette. Signed (signature on file) Rodolfo Headley MD 1438 END OF REPORT * ML=Testing performed at Main Lab DEPARTMENT OF PATHOLOGY, [address] [place] [address] Rodolfo Headley M.D. Director [facility] # [id number] Procedures Date Code Description Status 10/17/2018 Inject/Drain Joint/Bursa Major W/O US Completed 10/10/2018 Inject/Drain Joint/Bursa Major W/O US Completed 09/19/2018 Inject/Drain Joint/Bursa Major W/O US Completed 02/17/2017 Inject/Drain Joint/Bursa Major W/O US Completed 02/10/2017 Inject/Drain Joint/Bursa Major W/O US Completed 02/03/2017 Inject/Drain Joint/Bursa Major W/O US Completed 01/22/2016 02207 Polysomnography Sleep Staging 4+ Parameters Completed 12/23/2015 Inject/Drain Joint/Bursa Major W/O US Completed 12/13/2015 Inject/Drain Joint/Bursa Major W/O US Completed 12/10/2015 95167 Spirometry Incl Graphic Record Completed 12/10/2015 19711 Plethysmography Determination Lung Volumes & Per Airway Completed Resist 12/10/2015 50218 Diffusing Capacity Completed 12/06/2015 88039 Sleep Study Unattended,HRT Rate,Oxygen Sat,Resp Completed Effort/Airflow 12/06/2015 40170 Inject/Drain Joint/Bursa Major W/O US Completed 05/22/2014 94232 Stress Test Completed 05/22/2014 72447 Myocardial Perfusion Imaging Tomographic (Spect) Completed Multiple Studies 05/22/2014 03289 Myocardial Perfusion Imaging Tomographic (Spect) Completed Multiple Studies 05/21/2014 73209 Holter Monitoring 24 HR New Completed 05/16/2014 03100 EKG Tracing & Interpretation Completed 01/05/2014 87770955 Colonoscopy Completed 11/03/2013 08093 Laparoscopy Cholecystectomy Completed 11/02/2013 53041 EKG, Interpretation Only Completed Encounters Type Date Location Provider Dx Diagnosis Office Visit 09/30/2018 [facility] Beverley Bishop, M25.562 Pain in left knee 11:00a [facility] M25.462 Effusion, left knee M17.12 Unilateral primary osteoarthritis, left knee Office Visit 09/19/2018 2:00p [facility] Beverley Bishop, M25.562 Pain in left Of C.M.A. M.D. knee M25.462 Effusion, left knee M23.8x2 Other internal derangements of left knee M17.12 Unilateral primary osteoarthritis, left knee Office Visit 01/18/2017 8:45a [facility] eBverley Bishop, M25.561 Pain in right Of C.M.A. M.D. knee M25.461 Effusion, right knee M17.11 Unilateral primary osteoarthritis, right knee M22.2x1 Patellofemoral disorders, right knee Office Visit 01/06/2017 11:30a Orthopedic Mayela Franco M25.561 Pain in Services Of [facility] [place] right knee M25.461 Effusion, right knee S83.241A Oth tear of medial meniscus, current injury, r knee, init Office Visit 10/12/2016 1:00p Pulmonology And Meeta G47.33 Obstructive sleep Sleep Services Of MD Genna apnea (adult) [employer] (pediatric) J45.41 Moderate persistent asthma with (acute) exacerbation J30.9 Allergic rhinitis, unspecified B37.0 Candidal stomatitis Office Visit 04/13/2016 Pulmonology And Meeta J45.40 Moderate persistent 12:30p Sleep Services Of MD Genna asthma, [employer] Work[employer] uncomplicated G47.33 Obstructive sleep apnea (adult) (pediatric) Office Visit 02/05/2016 11:30a Pulmonology And Meeta G47.33 Obstructive sleep Sleep Services Of MD Genna apnea (adult) [facility] (pediatric) J45.40 Moderate persistent asthma, uncomplicated J30.9 Allergic rhinitis, unspecified Office Visit 01/07/2016 Pulmonology And Meeta J45.40 Moderate persistent 11:45a Sleep Services Of MD Genna asthma, [employer] uncomplicated G47.9 Sleep disorder, unspecified J30.9 Allergic rhinitis, unspecified Office Visit 12/05/2015 Pulmonology And Meeta J45.40 Moderate persistent 11:00a Sleep Services Of MD Genna asthma, [employer] uncomplicated G47.9 Sleep disorder, unspecified J30.9 Allergic rhinitis, unspecified Office Visit 11/15/2015 1:45p Orthopedic Services Beverley Bishop, M25.561 Pain in right Of C.M.A. M.D. knee M17.11 Unilateral primary osteoarthritis, right knee Office Visit 11/07/2015 10:20a [facility] Internal Valentina Ace, R53.83 Other fatigue Medicine N.P. J45.40 Moderate persistent asthma, uncomplicated F17.210 Nicotine dependence, cigarettes, uncomplicated M25.561 Pain in right knee L02.32 Furuncle of buttock Office Visit 09/20/2015 1:20p [facility] Internal Valentina Ace, J20.9 Acute bronchitis, Medicine N.P. unspecified Office Visit 05/28/2014 10:00a [facility] Internal Valentina Ace, 477.9 Rhinitis Allergic Medicine N.P. Cause Unspec 112.0 Candidiasis Mouth 785.1 Palpitations Office Visit 05/16/2014 8:40a [facility] Internal Valentina Ace, 786.50 Pain Chest Medicine N.P. Unspec 788.1 Dysuria 785.1 Palpitations 627.2 Menopausal Or Female Climacteric State, Symptomatic 493.90 Asthma Unspec W/O Status Asthmaticus Office Visit 11/14/2013 8:40a [facility] Internal Valentina Ace, 112.0 Candidiasis Mouth Medicine N.P. 112.1 Candidiasis The Vulva & Vagina 788.1 Dysuria 493.90 Asthma Unspec W/O Status Asthmaticus 780.79 Malaise And Fatigue Other 562.11 Diverticulitis Colon W/O Hemorrhage 346.90 Migraine Unspec W/O Intractable W/O Status Migrainosus Office Visit 11/03/2013 [facility] Joan 575.0 Cholecystitis Acute 10:28a [place] PA Hospitalists 575.0 Cholecystitis Acute Office 10/19/2013 [facility] 562.11 Diverticulitis Visit 12:28p [place] M.D. Colon W/O Hospitalists Hemorrhage 995.91 Sepsis 569.83 Perforation Intestine 629.9 Female Genital Organ Disorders Unspec Office Visit 10/18/2013 [facility] Joan 540.9 Appendicitis Acute 3:17p [place] PA W/O Peritonitis Hospitalists 427.31 Atrial Fibrillation 401.9 Hypertension Unspec V45.01 Cardiac Pacemaker In Situ Postsurgical Office Visit 10/18/2013 12:27p [facility] Velma 569.83 Perforation Assoc,katty Watts D.O. Intestine Hospitalists 995.91 Sepsis 562.11 Diverticulitis Colon W/O Hemorrhage 629.9 Female Genital Organ Disorders Unspec [facility] Visit [facility]/17[facility] 569.83 Perforation Assoc,katty Watts D.O. Intestine Hospitalists 995.91 Sepsis 562.11 Diverticulitis Colon W/O Hemorrhage 629.9 Female Genital Organ Disorders Unspec Office Visit 10/16/2013 12:27p [facility] Velma 569.83 Perforation Assoc,katty Watts D.O. Intestine Hospitalists 995.91 Sepsis 562.11 Diverticulitis Colon W/O Hemorrhage 629.9 Female Genital Organ Disorders Unspec Office Visit 10/15/2013 12:26p [facility] 569.83 Perforation Assoc,Kobe Cramer.O. Intestine Hospitalists 995.91 Sepsis 562.11 Diverticulitis Colon W/O Hemorrhage 629.9 Female Genital Organ Disorders Unspec Office Visit 10/14/2013 12:26p [facility] 569.83 Perforation Assoc,pc Kobe Watts.O. Intestine Hospitalists 995.91 Sepsis 562.11 Diverticulitis Colon W/O Hemorrhage 629.9 Female Genital Organ Disorders Unspec Office Visit 10/13/2013 [facility] [place] 569.83 Perforation 12:25p Assoc,pc II, M.D. Intestine Hospitalists 995.91 Sepsis 276.8 Hypopotassemia 629.9 Female Genital Organ Disorders Unspec Plan of Treatment Future Appointment(s):10/26/2018 10:45 am - Beverley Bishop M.D. at [facility]10/17/2018 - Beverley Bishop M.D.M25.562 Pain in left kneeFollow up:Follow up: 1 weekM25.462 Effusion, left kneeM17.12 Unilateral primary osteoarthritis, left kneeM23.8x2 Other internal derangements of left knee
--- OUTSIDE RECORDS SUMMARY | 2018-11-15 17:24 | XMS REPORT | Continuity of Care Document ---
:1965 External Reference #:[id number] Author Name Shari Rousseau Care Team Providers Name Role Phone Zandra Simmons MD Primary Care Physician Unavailable Payers Date Identification Numbers Payment Provider Subscriber Effective: 2016 Policy Number: [id number] Medicare Blue Ppo [employer] Number: [id number] [address] [address] PayID: [id number] [place] [id number] Expires: 2016 Policy Number: [id number] Medicare Denise Law PayID: [id number] [address] [place] [address] Problems Active Problems Provider Date Asthma Valentina [...] Comments Sex Unknown Lives With Spouse 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 ETOH Use Denies alcohol use Tobacco Use Start: Unknown Patient is a current smoker, smokes every day Recreational Drug Use Denies Drug Use Smoking Status Reviewed: 10/31/18 Patient is a current smoker, smokes every [...] 10/12/2016 - 2 times a day 01/17/2017 650851Qeeq/ML Suspension Levaquin 1 by mouth every 7tabs [...] 1 tab at night as 7tabs G47.9 Meetamilad [place], 12/05/2015 - 2mg needed for sleep 10/11/2016 [...] inhale 2 puffs by 1units 493.90 Valentina Ace, 2013 - 120 Metered Doses mouth two times N.P. 09/20/2015 daily 220mcg/Inh Aerosol Ventolin HFA 1 to 2 inhalations 1inhaler 493.90 Valentina Ace, 11/14/2013 - every 4 hours as N.P. 01/17/2017 108(90Base) mcg/Act needed Aerosol Imitrex one tablet as 12tabs 346.90 Valentina Montalvomaru, 11/14/2013 - 50mg needed for N.P. 01/17/2017 Tablets headache Fluconazole 2 po day one then 16tabs 112.0 Valentina Ace, 11/14/2013 - 100mg 1 po daily for [...] Date Synvisc Or Synvisc-One Beverley Bishop M.D. 10/26/2018 Injection 1 MG Injection Synvisc Or Synvisc-One Beverley Bishop M.D. 10/17/2018 Injection 1 MG Injection Synvisc Or Synvisc-One Beverley Bishop M.D. 10/10/2018 [...] Injection Vital Signs Date Vital Result Comment 10/31/2018 3:18pm Height 65 inches 5'5" Weight 190.00 lb BP Systolic Sitting 122 mmHg BP Diastolic Sitting 70 mmHg Pain Level 9 BMI (Body Mass Index) 31.6 kg/m2 10/26/2018 11:13am Height 65 inches 5'5" Weight 190.00 lb BP Systolic 128 mmHg BP Diastolic 82 mmHg Body Temperature 97.9 F BMI (Body Mass Index) 31.6 kg/m2 10/17/2018 3:20pm Height 65 inches 5'5" Weight [...] Result H/L Range Note Urinalysis Profile 03/15/2017 [facility] Urine Color Straw [place] [address] [place] [address] [phone] Urine Appearance Clear N Urine Specific [place] 1.003 Low 1.010-1.030 Urine pH 6.0 N [...] Present Abnormal Absent Urine Culture And 03/15/2017 [facility] Urine Culture SEE RESULT [address] [place] [address] [phone] Laboratory test 03/15/2017 [facility] Lactic Acid 0.7 mmol/L N 0.5-2. [address] [place] [address] [phone] CBC Auto Diff 03/15/2017 [facility] White Blood 9.4 10^3/uL N 3.5-[address] Count .8 [place] [address] [phone] Red Blood Count 4.83 10^6/uL N 4.0-5.4 [...] % 0 N Comp Metabolic Panel 03/15/2017 [facility] Sodium 137 mmol/L N 133-145 [address] [place] [address] [phone] Potassium 3.7 mmol/L N 3.5-5.0 Chloride 105 [...] 104.0 N >60 3 Laboratory test 03/15/2017 [facility] Magnesium 2.0 mg/dL N 1.9-2.[address] [place] [address] [phone] Amylase 46 U/L N 29-103 Lipase 10 U/L Low 11.0-82.0 C Reactive Protein 2.00 mg/L N < 5.00 4 Laboratory test 01/24/2015 [facility] Point of Care 88 mg/dL N 74-106 [address] Glucose [place], [place] [address] [phone] Ua Routine 05/16/2014 [facility] Ua Specific 1.025 [place] Ua PH 5.0 Ua Color medium yellow Ua Appera clear Ua WBC trace Ua Protein trace Ua Glucose neg Ua Ketones 40+ Ua Bilirubin neg Ua Urobilinogen 0.2 Ua Nitrite neg Ua Occult Blood neg Urine Culture And 05/16/2014 [facility] Urine Culture (SEE NOTE ) [address] [place] [address] [phone] Urinalysis Profile 05/16/2014 [facility] Urine Color Farida N [address] [place] [address] [phone] Urine Appearance Cloudy N Urine Specific [place] 1.025 N 1.010-1.030 Urine pH 5.0 N [...] Urine Squamous Epithelial Cell Present Abnormal Absent Gardnerella/Yeast: 05/12/2014 [facility] Gardnerella/Yeast: ( SEE 7 Vaginal Dna [address] Vaginal Dna NOTE) [place] [address] [phone] GC/Chlamydia 05/12/2014 [facility] Chlamydia Negative N Negative Amplified Rna [address] [place] [address] [phone] Neisseria gonorrhoeae (GC) Rna Negative N Negative 8 Laboratory test 05/12/2014 [facility] Trichomonas Negative N Negative [address] [place] [address] [phone] Surgical 01/05/2014 [facility] S RUN DATE: [address] 01/08/ <[place] [address] NOTE> [phone] Ua Routine 11/14/2013 [facility] Ua Specific 1.015 [place] Ua PH 5 Ua Color yellow Ua Appera clear Ua WBC negative Ua Protein trace Ua Glucose negative Ua Ketones small Ua Bilirubin large Ua Urobilinogen normal Ua Nitrite negative Ua Occult Blood negative 1 SEE RESULT BELOW Name: JOSE MIGUELDENISE Salvador : [address]: Konrad Yates MD Acct: [id number] Unit: [id number] AGE: 51 Location: ED Re03/15/17 SEX: F Status: DEP ER SPEC: [id number] ISAIAS: 03/15/[address] [facility] [address]: Anastasiia Sosa MD REQ: [id number] RECD: 03/15/17 STATUS: HUE CHURCHILL DR: Valentina Yates MD _ SOURCE: URINE SPDESC: ORDERED: Urine Culture Procedure Result Reported Site Urine Culture Final 03/17/17- 0959 ML Organism 1 ESCHERICHIA COLI Portia Count 10-25,000 (Moderate) CFU/ML 1. ESCHERICHIA COLI [...] antibiotic reporting. * ML - MAIN LAB ([facility]) . END OF REPORT * ML=Testing performed at Main Lab DEPARTMENT OF PATHOLOGY, [address] [place] [address] Rodolfo Headley M.D. Director [facility] # [id number] 2 [facility] Severe Sepsis and Septic Shock Management [...] (or dialysis) 4 Acute inflammation: >10.00 5 Braddisher: [id number] NEGRO ESTRADA 6 RUN DATE: 05/18/14 [facility] LAB LIVE PAGE 1 RUN TIME: [address] [place] [address] Specimen Inquiry Name: DENISE LAW : [address]: Valentina Ace NP Acct: [id number] Unit: [id number] AGE: 48 Location: [facility] Re05/16/14 SEX: F Status: REG REF SPEC: [id number] ISAIAS: 05/16/[address] [facility] [address]: Valentina Ace NP REQ: [id number] RECD: 05/16/14 STATUS: COMP _ SOURCE: URINE SPDESC: ORDERED: Urine Culture QUERIES: Medent Number [id number] Procedure Result Verified Site Urine Culture Final 05/18/14- 1044 ML No Growth Day 2 (<1,000 CFU/mL) END OF REPORT * ML=Testing performed at Main Lab DEPARTMENT OF PATHOLOGY, [facility] [employer] [place], [place] [address] Rodolfo Headley M.D. Director [facility] # [id number] 7 RUN DATE: 05/14/14 [facility] LAB LIVE PAGE 1 RUN TIME: 1220 [facility] [employer] [place], [place] [address] Specimen Inquiry Name: DENISE LAW : [address]: Keyshawn Thornton MD Acct: [id number] Unit: [id number] AGE: 48 Location: [facility] Re05/12/14 SEX: F Status: DEP ER SPEC: [id number] ISAIAS: 05/12/14-[address] [facility] [address]: Mayela POTTER REQ: [id number] RECD: 05/13/14 STATUS: HUE CHURCHILL DR: Keyshawn Ace SQL TECH _ SOURCE: VAGINAL SPDESC: ORDERED: Johann,Yeast DNA [...] performed at Main Lab DEPARTMENT OF PATHOLOGY, [facility] [employer] [place] [address] Rodolfo Headley M.D. Director [facility] # [id number] 8 Female urine specimens have been self-validated by [facility] and have been granted conditional assay approval by [facility]. 9 Endocervical Endocervical 10 RUN DATE: 01/08/14 [facility] LAB LIVE PAGE 1 RUN TIME: 1439 [facility] [employer] [place], [place] [address] Specimen Inquiry Name: DENISE LAW : [address]: Patrick Whittaker MD Acct: [id number] Unit: [id number] AGE: 48 Location: ENDO Re01/05/14 SEX: F Status: REG REF SPEC: [id number] ISAIAS: 01/05/14-[address] [facility] [address]: Patrick Whittaker MD REQ: [id number] RECD: 01/05/14-1208 STATUS: LINDA CHURCHILL DR: Valentina Ace SQL TECH _ ORDERED: LEVEL IV FINAL DIAGNOSIS Colon, [...] performed at Main Lab DEPARTMENT OF PATHOLOGY, [address] [place] [address] Rodolfo Headley M.D. Director [facility] # [id number] Procedures Date Code Description Status 10/26/2018 Inject/Drain Joint/Bursa Major W/O US Completed 10/17/2018 Inject/Drain Joint/Bursa Major W/O US Completed 10/10/2018 Inject/Drain Joint/Bursa Major W/O US Completed 09/19/2018 Inject/Drain Joint/Bursa Major W/O US Completed 02/17/2017 Inject/Drain Joint/Bursa Major W/O US Completed 02/10/2017 Inject/Drain Joint/Bursa Major W/O US Completed 02/03/2017 Inject/Drain Joint/Bursa Major W/O US Completed 01/22/2016 37937 Polysomnography Sleep Staging 4+ Parameters Completed 12/23/2015 Inject/Drain Joint/Bursa Major W/O US Completed 12/13/2015 Inject/Drain Joint/Bursa Major W/O US Completed 12/10/2015 38827 Spirometry Incl Graphic Record Completed 12/10/2015 06463 Plethysmography Determination Lung Volumes & Per Airway Completed Resist 12/10/2015 14457 Diffusing Capacity Completed 12/06/2015 48368 Sleep Study Unattended,HRT Rate,Oxygen Sat,Resp Completed Effort/Airflow 12/06/201559489 Inject/Drain Joint/Bursa Major W/O US Completed 05/22/2014 92543 Stress Test Completed 05/22/2014 13674 Myocardial Perfusion Imaging Tomographic (Spect) Completed Multiple Studies 05/22/2014 39733 Myocardial Perfusion Imaging Tomographic (Spect) Completed Multiple Studies 05/21/2014 18377 Holter Monitoring 24 HR New Completed 05/16/2014 69293 EKG Tracing & Interpretation Completed 01/05/2014 72014327 Colonoscopy Completed 11/03/2013 04349 Laparoscopy Cholecystectomy Completed 11/02/2013 35289 EKG, Interpretation Only Completed Encounters Type Date Location Provider Dx Diagnosis Office Visit 10/31/2018 Neurosurgery Vamshi Buck, M43.06 Spondylolysis, 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 M.D. knee M25.462 Effusion, left knee M17.12 Unilateral primary osteoarthritis, left knee Office Visit 09/19/2018 2:00p Orthopedic Services Beverley Bishop M25.562 Pain in left Of C.M.A. M.D. knee M25.462 Effusion, left knee M23.8x2 Other internal derangements of left knee M17.12 Unilateral primary osteoarthritis, left knee Office Visit 01/18/2017 8:45a Orthopedic Services Beverley Bishop M25.561 Pain in right Of C.M.A. M.D. [...] Sleep Services Of MD Genna apnea (adult) [facility] (pediatric) J45.41 Moderate persistent asthma with (acute) exacerbation J30.9 Allergic rhinitis, unspecified B37.0 Candidal stomatitis Office Visit 04/13/2016 Pulmonology And Meeta J45.40 Moderate persistent 12:30p Sleep Services Of [place] Genna asthma, [employer] uncomplicated G47.33 Obstructive sleep apnea (adult) (pediatric) Office Visit 02/05/2016 11:30a Pulmonology And Meeta G47.33 Obstructive sleep Sleep Services Of MD Genna apnea (adult) [facility] (pediatric) J45.40 Moderate persistent asthma, uncomplicated J30.9 Allergic rhinitis, unspecified Office Visit 01/07/2016 Pulmonology And Meeta J45.40 Moderate persistent 11:45a Sleep Services Of [place]na asthma, [employer] [place] uncomplicated G47.9 Sleep disorder, unspecified J30.9 Allergic rhinitis, unspecified Office Visit 12/05/2015 Pulmonology And Meeta J45.40 Moderate persistent 11:00a Sleep Services Of [place]na asthma, [facility] uncomplicated G47.9 Sleep disorder, unspecified J30.9 Allergic rhinitis, unspecified Office Visit 11/15/2015 1:45p Orthopedic Services Beverley Bishop, M25.561 Pain in right Of C.M.A. M.D. knee M17.11 Unilateral primary osteoarthritis, right knee Office Visit 11/07/2015 10:20a [facility] Internal Valentina Ace, R53.83 Other fatigue Medicine - Ccmob N.P. J45.40 Moderate persistent asthma, uncomplicated F17.210 Nicotine dependence, cigarettes, uncomplicated M25.561 Pain in right knee L02.32 Furuncle of buttock Office Visit 09/20/2015 1:20p [facility] Internal Valentina Ace, J20.9 Acute bronchitis, Medicine - N.P. unspecified Ccmob Office Visit 05/28/2014 10:00a [facility] Internal Valentina Ace, 477.9 Rhinitis Allergic Medicine - N.P. Cause Unspec Ccmob 112.0 Candidiasis Mouth 785.1 Palpitations Office Visit 05/16/2014 8:40a [facility] Internal Valentina Ace, 786.50 Pain Chest Medicine - Ccmob N.P. Unspec 788.1 Dysuria 785.1 Palpitations 627.2 Menopausal Or Female Climacteric State, Symptomatic 493.90 Asthma Unspec W/O Status Asthmaticus Office Visit 11/14/2013 8:40a [facility] Internal Valentina Ace, 112.0 Candidiasis Mouth Medicine - N.P. Ccmob 112.1 Candidiasis The Vulva & Vagina 788.1 Dysuria 493.90 Asthma Unspec W/O Status Asthmaticus 780.79 Malaise And Fatigue Other 562.11 Diverticulitis Colon W/O Hemorrhage 346.90 Migraine Unspec W/O Intractable W/O Status Migrainosus Office Visit 11/03/2013 [facility] Joan 575.0 Cholecystitis Acute 10:28a Assoc,ABBEY Carrera Hospitalists 575.0 Cholecystitis Acute Office 10/19/2013 [facility] 562.11 Diverticulitis Visit 12:28p Asskatty holly M.D. Colon W/O Hospitalists Hemorrhage 995.91 Sepsis 569.83 Perforation Intestine 629.9 Female Genital Organ Disorders Unspec Office Visit 10/18/2013 [facility] Joan 540.9 Appendicitis Acute 3:17p [place] PA W/O Peritonitis Hospitalists 427.31 Atrial Fibrillation 401.9 Hypertension Unspec V45.01 Cardiac Pacemaker In Situ Postsurgical Office Visit 10/18/2013 12:27p [facility] Velma 569.83 Perforation [place] D.O. Intestine Hospitalists 995.91 Sepsis 562.11 Diverticulitis Colon W/O Hemorrhage 629.9 Female Genital Organ Disorders Unspec Office Visit 10/17/2013 12:27p [facility] Velma 569.83 Perforation [place] D.O. Intestine Hospitalists 995.91 Sepsis 562.11 Diverticulitis Colon W/O Hemorrhage 629.9 Female Genital Organ Disorders Unspec Office Visit 10/16/2013 12:27p [facility] 569.83 Perforation [place] D.O. Intestine Hospitalists 995.91 Sepsis 562.11 Diverticulitis Colon W/O Hemorrhage 629.9 Female Genital Organ Disorders Unspec Office Visit 10/15/2013 12:26p [facility] 569.83 Perforation Assoc,katty Watts D.O. Intestine Hospitalists 995.91 Sepsis 562.11 Diverticulitis Colon W/O Hemorrhage 629.9 Female Genital Organ Disorders Unspec Office Visit 10/14/2013 12:26p [facility] 569.83 Perforation Assock[place]ty D.O. Intestine Hospitalists 995.91 Sepsis 562.11 Diverticulitis Colon W/O Hemorrhage 629.9 Female Genital Organ Disorders Unspec Office Visit 10/13/2013 [facility] [place] 569.83 Perforation 12:25p katty Pereira II, M.D. Intestine Hospitalists 995.91 Sepsis 276.8 Hypopotassemia 629.9 Female Genital Organ Disorders Unspec Plan of Treatment 10/31/2018 - Vamshi Buck, PAM43.06 Spondylolysis, lumbar regionFollow up:RTC 3 -4 pdlhnG56.16 Radiculopathy, lumbar region
[2018-11-15 17:31] LABS: ABS Eosinophils 0.1 10^3/ul (0-0.6); ABS Lymphocytes 2.8 10^3/ul (1.0-4.8); ABS Monocytes 0.5 10^3/ul (0-0.8); ABS Neutrophils 6.3 10^3/ul (1.5-7.7); Eosinophil % 1.3 %; Hematocrit 44 % (35-47); Lymphocyte % 28.7 %; Mean Corpuscular HGB Conc 34 g/dL (31-36); Mean Corpuscular Hemoglobin 31 pg (27-31); Mean Corpuscular Volume 91 fL (80-97); Mean Platelet Volume 9.7 fL (7.4-10.4); Nucleated Red Blood Cells % 0.1; Platelet Count 220 10^3/uL (150-450); Red Cell Distribution Width 14 % (10-15); White Blood Count 9.7 10^3/uL (3.5-10.8)
[2018-11-15 17:39] LABS: INR 0.94 (0.82-1.09)
[2018-11-15 17:50] LABS: Albumin 4.1 g/dL (3.2-5.2); Albumin/Globulin Ratio 1.5 (1-3); BUN/Creatinine Ratio 11.3 (8-20); Calcium 9.4 mg/dL (8.6-10.3); EGFR African American 91.5 (>60); EGFR Non-African American 75.6 (>60); Globulin 2.7 g/dL (2-4); Potassium 3.8 mmol/L (3.5-5.0); Total Bilirubin 0.2 mg/dL (0.2-1.0); Total Protein 6.8 g/dL (6.4-8.9)
[2018-11-15 18:08] VITALS: BP 134/89
== END | disposition left against medical advice (07) ==
LOC: ED 16:34
DX: Z53.21 Procedure and treatment not carried out due to patient leaving prior to being seen by health care provider (principal)
CPT/HCPCS: 36415; 80053; 84484; 85025; 85610; 93005; 99282